=== PATIENT | female | born 1970 | race Hispanic/Latino ===

== ENCOUNTER 2017-06-07 02:38 | Emergency (ER) | payer MEDICARE ==
[2017-06-07 03:28] LABS: Basophils # (Auto) 0.1 K/mm3 (0.0-0.1); Basophils % (Auto) 1.2 % (0.0-1.8); Eosinophils # (Auto) 0.4 K/mm3 (0.0-0.4); Eosinophils % (Auto) 6.8 % (0.0-4.3); Hematocrit 28.2 % (30.3-42.9); Hemoglobin 8.4 gm/dl (10.1-14.3); Lymphocytes # (Auto) 2.2 K/mm3 (1.2-5.4); Lymphocytes % (Auto) 34.7 % (13.4-35.0); Mean Corpuscular HGB Conc 30 % (30-34); Mean Corpuscular Volume 71 fl (79-97); Monocytes # (Auto) 0.9 K/mm3 (0.0-0.8); Monocytes % (Auto) 13.5 % (0.0-7.3); Platelet Count 219 K/mm3 (140-440); Red Blood Count 3.97 M/mm3 (3.65-5.03)
[2017-06-07 03:34] LABS: Mean Corpuscular Hemoglobin 21 pg (28-32); Red Cell Distribution Width 22.5 % (13.2-15.2)
[2017-06-07 03:39] LABS: BUN/Creatinine Ratio 24; Blood Urea Nitrogen 17 mg/dL (7-17); Calcium 8.9 mg/dL (8.4-10.2); Hemolysis Index 3
--- NOTE | 2017-06-07 06:31 | Emergency Department Report ---
HPI - General Chief Complaint: Anxiety Time Seen by Provider: 06/07/17 06:21 - HPI HPI: Room 6 The patient is a 47-year-old female presented with a chief complaint of anxiety. The patient states she came to the emergency department because she had an anxiety attack. Patient states she ran out of her medications approximately 2 weeks ago. When asked if she followed up with her psychiatrist after running out of her medications the patient does not respond. The patient is sleeping on a stretcher and requires frequent verbal stimuli to awaken and complete the interview. When patient awakens she apologized that she just feels tired without any specific complaints Location: Mental status Duration: [See above] Quality: Anxiety Severity: Moderate Modifying factors: [see above] Context: [see above] Mode of transportation: Unknown ED Past Medical Hx - Past Medical History Previous Medical History?: Yes Hx Headaches / Migraines: Yes Hx Kidney Stones: Yes Hx Psychiatric Treatment: Yes Additional medical history: Bipolar, Depression, Crohn's. HERNIATED DISC/ CHRONIC BACK PAIN - Surgical History Past Surgical History?: Yes Hx Cholecystectomy: Yes Additional Surgical History: Xs 3,. tubal ligation - Family History Family history: no significant - Social History Smoking Status: Never Smoker Substance Use Type: None (denies illicit drug use) - Medications Home Medications: Home Medications Medication Instructions Recorded Confirmed Last Taken Type Quetiapine Fumarate [Seroquel XR] 800 mg PO HS 11/21/13 05/29/15 1 Day Ago History ~05/28/15 Trazodone HCl [Oleptro ER] 300 mg PO QHS 11/21/13 05/29/15 1 Day Ago History ~05/28/15 ALPRAZolam [Xanax TAB] 1 mg PO BID PRN 05/29/15 05/29/15 1 Day Ago History ~05/28/15 Ciprofloxacin HCl [Ciprofloxacin 500 mg PO Q12H #28 tab 05/29/15 Unknown Rx TAB] HYDROcodone/APAP 5-325 [Zalma 1 each PO Q6HR PRN #7 tablet 05/29/15 Unknown Rx 5/325] predniSONE [Deltasone] 20 mg PO QDAY #14 tab 05/29/15 Unknown Rx Acetaminophen/Codeine [Tylenol #3] 1 tab PO Q6H PRN #12 tab 06/27/15 Unknown Rx Ibuprofen [Motrin 800 MG tab] 1 tab PO Q8HR PRN #30 tablet 06/27/15 Unknown Rx Nitrofurantoin Sutton/M-Cryst 1 cap PO Q12HR #14 capsule 06/27/15 Unknown Rx [Macrobid CAP] predniSONE [Deltasone] 1 tab PO QDAY #5 tab 06/27/15 Unknown Rx Ferrous Sulfate [Feosol 325 MG tab] 325 mg PO BID #60 tablet 12/06/15 Unknown Rx Ondansetron [Zofran Odt] 4 mg PO Q8HR PRN #20 tab.rapdis 12/06/15 Unknown Rx Oxycodone HCl/Acetaminophen 1 each PO Q6HR PRN #20 tablet 12/06/15 Unknown Rx [Percocet 7.5/325 mg] Cyclobenzaprine [Flexeril] 10 mg PO TID PRN #15 tablet 12/12/15 Unknown Rx PARoxetine [Paxil] 60 mg PO HS #30 tablet 06/07/17 Unknown Rx hydrOXYzine PAMOATE [Vistaril] 50 mg PO Q6HR PRN #10 capsule 06/07/17 Unknown Rx ED Review of Systems ROS: Stated complaint: ANXIETY Other details as noted in HPI Psychiatric: anxiety Physical Exam - Physical Exam Vital Signs: Vital Signs 06/07/17 06/07/17 02:48 05:10 Temperature 98.2 F Pulse Rate 93 H Respiratory 18 16 Rate Blood Pressure 107/67 O2 Sat by Pulse 100 99 Oximetry Physical Exam: GENERAL: The patient is well-developed well-nourished female sleeping on stretcher not appearing to be in acute distress. Patient requires frequent verbal stimuli during interview to prevent her from falling back asleep HEENT: Normocephalic. Atraumatic. Extraocular motions are intact. Patient has moist mucous membranes. NECK: Supple. Trachea midline CHEST/LUNGS: Clear to auscultation. There is no respiratory distress noted. HEART/CARDIOVASCULAR: Regular. There is no tachycardia. There is no gallop rub or murmur. SKIN: There is no rash. There is no diaphoresis. NEURO: The patient is initially asleep but awakens to verbal stimuli. Initially the patient would frequently fall back asleep during the interview. The patient is cooperative. The patient has no focal neurologic deficits. The patient has normal speech MUSCULOSKELETAL: There is no evidence of acute injury. ED Course Vital Signs 06/07/17 06/07/17 02:48 05:10 Temperature 98.2 F Pulse Rate 93 H Respiratory 18 16 Rate Blood Pressure 107/67 O2 Sat by Pulse 100 99 Oximetry ED Medical Decision Making - Lab Data Result diagrams: 06/07/17 03:05 06/07/17 03:05 Laboratory Tests 06/07/17 06/07/17 03:05 03:05 WBC 6.4 RBC 3.97 Hgb 8.4 L Hct 28.2 L MCV 71 L MCH 21 L MCHC 30 RDW 22.5 H Plt Count 219 Lymph % (Auto) 34.7 Sutton % (Auto) 13.5 H Eos % (Auto) 6.8 H Baso % (Auto) 1.2 Lymph # 2.2 Sutton # 0.9 H Eos # 0.4 Baso # 0.1 Seg Neutrophils % 43.8 Seg Neutrophils # 2.8 Sodium 138 Potassium 3.6 Chloride 99.0 Carbon Dioxide 26 Anion Gap 17 BUN 17 Creatinine 0.7 Estimated GFR > 60 BUN/Creatinine Ratio 24 Glucose 114 H Calcium 8.9 - Differential Diagnosis anxiety, malingering Critical care attestation.: If time is entered above; I have spent that time in minutes in the direct care of this critically ill patient, excluding procedure time. ED Disposition Clinical Impression: History of anxiety Disposition: DC-01 TO HOME OR SELFCARE Is pt being admited?: No Does the pt Need Aspirin: No Condition: Stable Instructions: Anxiety (ED) Additional Instructions: Return to the emergency department immediately should you develop worsening symptoms, fever, inability to tolerate food or liquid or any other concerns. Prescriptions: hydrOXYzine PAMOATE [Vistaril] 50 mg PO Q6HR PRN #10 capsule PRN Reason: Anxiety PARoxetine [Paxil] 60 mg PO HS #30 tablet Referrals: PRIMARY CARE, [Primary Care Provider] - 3-[address] [facility] [[facility]] - 3-5 Days Time of Disposition: 06:31
[2017-06-07 06:35] VITALS: BP 101/59
== END 2017-06-07 06:35 | disposition home or self-care (01) ==
LOC: ED 02:38
DX: F41.9 Anxiety disorder, unspecified (principal); F31.9 Bipolar disorder, unspecified; K50.90 Crohn's disease, unspecified, without complications; M54.9 Dorsalgia, unspecified; G89.29 Other chronic pain; Z98.51 Tubal ligation status
CPT/HCPCS: 36415; 80048; 85025; 99283

== ENCOUNTER 2017-12-14 23:29 | Emergency (ER) | payer MEDICARE ==
[2017-12-14 23:55] VITALS: BP 107/67
[2017-12-15] MEDS ORDERED: NACL 0.9% 1000 ML 1,000 ML IV ONE (00:10)
[2017-12-15 00:31] LABS: Basophils # (Auto) 0.1 K/mm3 (0.0-0.1); Basophils % (Auto) 1.4 % (0.0-1.8); Eosinophils # (Auto) 0.1 K/mm3 (0.0-0.4); Eosinophils % (Auto) 2.9 % (0.0-4.3); Hematocrit 27.8 % (30.3-42.9); Hemoglobin 8.5 gm/dl (10.1-14.3); Lymphocytes # (Auto) 1.5 K/mm3 (1.2-5.4); Lymphocytes % (Auto) 29.9 % (13.4-35.0); Mean Corpuscular HGB Conc 31 % (30-34); Mean Corpuscular Volume 74 fl (79-97); Monocytes # (Auto) 0.6 K/mm3 (0.0-0.8); Monocytes % (Auto) 11.9 % (0.0-7.3); Platelet Count 200 K/mm3 (140-440); Red Blood Count 3.76 M/mm3 (3.65-5.03)
[2017-12-15 00:32] LABS: Mean Corpuscular Hemoglobin 23 pg (28-32); Red Cell Distribution Width 20.3 % (13.2-15.2)
[2017-12-15 00:48] LABS: Alanine Aminotransferase 9 units/L (7-56); Albumin 4.2 g/dL (3.9-5); BUN/Creatinine Ratio 9; Blood Urea Nitrogen 7 mg/dL (7-17); Calcium 8.8 mg/dL (8.4-10.2); Hemolysis Index 2; Lipase 32 units/L (13-60)
== END 2017-12-15 03:26 | disposition left against medical advice (07) ==
LOC: ED 23:29
DX: R11.10 Vomiting, unspecified (principal); Z53.21 Procedure and treatment not carried out due to patient leaving prior to being seen by health care provider
CPT/HCPCS: 36415; 80053; 82962; 83690; 84703; 85025; 93005; 93010

== ENCOUNTER 2017-12-21 23:14 | Emergency (ER) | payer MEDICARE ==
[2017-12-22] MEDS ORDERED: NACL 0.9% 1000 ML 1,000 ML IV ONE (00:32)
[2017-12-22 01:14] LABS: Basophils # (Auto) 0.1 K/mm3 (0.0-0.1); Basophils % (Auto) 1.9 % (0.0-1.8); Eosinophils # (Auto) 0.2 K/mm3 (0.0-0.4); Eosinophils % (Auto) 4.6 % (0.0-4.3); Hemoglobin 7.8 gm/dl (10.1-14.3); Lymphocytes # (Auto) 1.6 K/mm3 (1.2-5.4); Lymphocytes % (Auto) 38.8 % (13.4-35.0); Mean Corpuscular HGB Conc 30 % (30-34); Mean Corpuscular Volume 74 fl (79-97); Monocytes # (Auto) 0.5 K/mm3 (0.0-0.8); Monocytes % (Auto) 12.5 % (0.0-7.3); Platelet Count 258 K/mm3 (140-440); Red Blood Count 3.51 M/mm3 (3.65-5.03)
[2017-12-22 01:16] LABS: Mean Corpuscular Hemoglobin 22 pg (28-32); Red Cell Distribution Width 20.3 % (13.2-15.2)
[2017-12-22 01:30] LABS: Alanine Aminotransferase 80 units/L (7-56); Albumin 4.1 g/dL (3.9-5); BUN/Creatinine Ratio 10; Blood Urea Nitrogen 9 mg/dL (7-17); Calcium 9.1 mg/dL (8.4-10.2); Hemolysis Index 13; Lipase 25 units/L (13-60)
[2017-12-22 02:23] LABS: Bilirubin,Urine NEG (Negative); Blood,Urine LG (Negative); Color,Urine Straw (Yellow); Protein,Urine <15 mg/dL mg/dL (Negative); Urobilinogen,Urine < 2.0 mg/dL (<2.0)
[2017-12-22] MEDS ORDERED: TORADOL IM ONE (03:55)
[2017-12-22] MEDS ORDERED: ZOFRAN IM ONE (03:55)
--- NOTE | 2017-12-22 04:00 | Emergency Department Report ---
ED Abdominal Pain HPI - General Chief Complaint: Abdominal Pain Stated Complaint: SEVERE STOMACH PAIN Time Seen by Provider: 12/22/17 03:46 Source: patient Mode of arrival: Ambulatory Limitations: No Limitations - History of Present Illness Initial Comments: Patient is 47 years old female with history of chronic abdominal pain, bipolar disorder and substance abuse. Patient was recently discharged from the hospital for abdominal pain for which she was seen by gastroenterology. Patient also had a recent CT abdomen and pelvis with no acute finding. Patient gave remote history of Crohn's disease in [address] abdomen and pelvis did not show any evidence of that. Patient has chronic anemia for which a gynecology consult was asked for. Patient today presented with the same abdominal pain. She stated that she didn't have any bowel movement for the last week. She also stated that she's been having some nausea but no vomiting. Patient denied any fever, chest pain or shortness of breath. MD Complaint: abdominal pain - Related Data Home Medications Medication Instructions Recorded Confirmed Last Taken Quetiapine Fumarate [SEROquel XR] 600 mg PO HS 11/21/13 12/16/17 1 Day Ago ~05/28/15 Ziprasidone HCl [Geodon] 80 mg PO BID 12/16/17 12/16/17 Unknown lamoTRIgine [LaMICtal] 100 mg PO BID 12/16/17 12/16/17 Unknown Previous Rx's Medication Instructions Recorded Last Taken Type PARoxetine [Paxil] 60 mg PO HS #30 tablet 06/07/17 Unknown Rx Pantoprazole [Protonix TAB] 20 mg PO QDAY #30 tablet.dr 12/17/17 Unknown Rx Polyethylene Glycol 3350 [Miralax 17 gm PO BID #60 powd.pack 12/17/17 Unknown Rx 3350] traMADol [Ultram 50 MG tab] 50 mg PO Q6H PRN #14 tablet 12/17/17 Unknown Rx Lactulose 10 gm PO DAILY PRN #150 ml 12/22/17 Unknown Rx Ondansetron [Zofran Odt] 4 mg PO Q8HR PRN #14 tab.rapdis 12/22/17 Unknown Rx Sodium Phosphate,[place]-Dibasic 118 ml RC ONCE #1 enema 12/22/17 Unknown Rx [Fleet Enema] Allergies Allergy/AdvReac Type Severity Reaction Status Date / Time Penicillins Allergy Unknown Verified 06/27/15 12:35 ED Review of Systems ROS: Stated complaint: SEVERE STOMACH PAIN Other details as noted in HPI Comment: All other systems reviewed and negative Constitutional: denies: chills, fever Cardiovascular: denies: chest pain, palpitations Gastrointestinal: abdominal pain, nausea. denies: vomiting, diarrhea, constipation, hematemesis, melena, hematochezia Neurological: denies: headache, weakness, numbness, paresthesias, confusion ED Past Medical Hx - Past Medical History Hx Congestive Heart Failure: No Hx Diabetes: No Hx Headaches / Migraines: Yes Hx Kidney Stones: Yes Hx Psychiatric Treatment: Yes Hx Asthma: No Hx COPD: No Additional medical history: Bipolar, Depression, Crohn's. HERNIATED DISC/ CHRONIC BACK PAIN - Surgical History Hx Cholecystectomy: Yes Additional Surgical History: Xs 3,. tubal ligation - Social History Smoking Status: Current Every Day Smoker Substance Use Type: None - Medications Home Medications: Home Medications Medication Instructions Recorded Confirmed Last Taken Type Quetiapine Fumarate [SEROquel XR] 600 mg PO HS 11/21/13 12/16/17 1 Day Ago History ~05/28/15 PARoxetine [Paxil] 60 mg PO HS #30 tablet 06/07/17 12/16/17 Unknown Rx Ziprasidone HCl [Geodon] 80 mg PO BID 12/16/17 12/16/17 Unknown History lamoTRIgine [LaMICtal] 100 mg PO BID 12/16/17 12/16/17 Unknown History Pantoprazole [Protonix TAB] 20 mg PO QDAY #30 tablet.dr 12/17/17 Unknown Rx Polyethylene Glycol 3350 [Miralax 17 gm PO BID #60 powd.pack 12/17/17 Unknown Rx 3350] traMADol [Ultram 50 MG tab] 50 mg PO Q6H PRN #14 tablet 12/17/17 Unknown Rx Lactulose 10 gm PO DAILY PRN #150 ml 12/22/17 Unknown Rx Ondansetron [Zofran Odt] 4 mg PO Q8HR PRN #14 tab.rapdis 12/22/17 Unknown Rx Sodium Phosphate,[place]-Dibasic 118 ml RC ONCE #1 enema 12/22/17 Unknown Rx [Fleet Enema] ED Physical Exam - General Limitations: No Limitations General appearance: alert, in no apparent distress - Head Head exam: Present: atraumatic, normocephalic, normal inspection - Eye Eye exam: Present: normal appearance, PERRL - ENT ENT exam: Present: normal exam, normal orophraynx, mucous membranes moist - Neck Neck exam: Present: normal inspection, full ROM. Absent: tenderness, meningismus, lymphadenopathy, thyromegaly - Respiratory Respiratory exam: Present: normal lung sounds bilaterally - Cardiovascular Cardiovascular Exam: Present: regular rate, normal rhythm, normal heart sounds - GI/Abdominal GI/Abdominal exam: Present: soft, normal bowel sounds. Absent: distended, tenderness, guarding, rebound, rigid, organomegaly, mass, bruit, pulsatile mass , hernia - Extremities Exam Extremities exam: Present: normal inspection, full ROM, normal capillary refill - Back Exam Back exam: Present: normal inspection, full ROM. Absent: tenderness, CVA tenderness (R), CVA tenderness (L), muscle spasm, paraspinal tenderness, vertebral tenderness, rash noted - Neurological Exam Neurological exam: Present: alert, oriented X3, CN II-XII intact, normal gait, reflexes normal - Skin Skin exam: Present: warm, intact, normal color ED Course Vital Signs 12/22/17 12/22/17 12/22/17 00:26 03:28 04:00 Temperature 97.6 F 97.7 F Pulse Rate 95 H 87 Respiratory 16 18 Rate Blood Pressure 106/71 103/68 Blood Pressure 113/72 [Left] O2 Sat by Pulse 100 99 Oximetry ED Medical Decision Making - Lab Data Result diagrams: 12/22/17 00:38 12/22/17 00:38 Critical care attestation.: If time is entered above; I have spent that time in minutes in the direct care of this critically ill patient, excluding procedure time. ED Disposition Clinical Impression: Intractable abdominal pain Abdominal pain Qualifiers: Abdominal location: generalized Qualified Code(s): R10.84 - Generalized abdominal pain Disposition: TO HOME OR SELFCARE Is pt being admited?: No Condition: Stable Instructions: Constipation (ED), High Fiber Diet (ED), Abdominal Pain (ED) Prescriptions: Lactulose 10 gm PO DAILY PRN #150 ml PRN Reason: Constipation Ondansetron [Zofran Odt] 4 mg PO Q8HR PRN #14 tab.rapdis PRN Reason: Nausea And Vomiting Sodium Phosphate,Wilbarger-Dibasic [Fleet Enema] 118 ml RC ONCE #1 enema Referrals: PRIMARY CARE, [Primary Care Provider] - 3-5 Days Forms: Work/School Release Form(ED)
[2017-12-22 04:34] VITALS: BP 103/68
== END 2017-12-22 04:25 | disposition home or self-care (01) ==
LOC: ED 23:14
DX: R10.84 Generalized abdominal pain (principal); F31.9 Bipolar disorder, unspecified; F17.200 Nicotine dependence, unspecified, uncomplicated; K50.90 Crohn's disease, unspecified, without complications; M54.9 Dorsalgia, unspecified; G89.29 Other chronic pain; Z90.49 Acquired absence of other specified parts of digestive tract; Z98.51 Tubal ligation status; Z87.442 Personal history of urinary calculi
CPT/HCPCS: 36415; 80053; 81001; 83690; 84703; 85025; 96372; 99283; J1885; J2405

== ENCOUNTER 2019-07-22 11:04 | Inpatient (IN) | payer MEDICARE ==
[2019-07-22 16:47] LABS: Basophils # (Auto) 0.1 K/mm3 (0.0-0.1); Basophils % (Auto) 1.2 % (0.0-1.8); Eosinophils # (Auto) 0.2 K/mm3 (0.0-0.4); Eosinophils % (Auto) 4.8 % (0.0-4.3); Hematocrit 35.8 % (30.3-42.9); Hemoglobin 11.5 gm/dl (10.1-14.3); Lymphocytes # (Auto) 1.6 K/mm3 (1.2-5.4); Lymphocytes % (Auto) 34.3 % (13.4-35.0); Mean Corpuscular HGB Conc 32 % (30-34); Mean Corpuscular Volume 88 fl (79-97); Monocytes # (Auto) 0.4 K/mm3 (0.0-0.8); Monocytes % (Auto) 9.5 % (0.0-7.3); Platelet Count 179 K/mm3 (140-440); Red Blood Count 4.05 M/mm3 (3.65-5.03); Red Cell Distribution Width 17.8 % (13.2-15.2)
[2019-07-22 17:07] LABS: Albumin 3.8 g/dL (3.9-5); Calcium 9.3 mg/dL (8.4-10.2); Chol/HDL Ratio 3.71 %
[2019-07-22] MEDS: QUEtiapine 100 MG TAB PO SCH (21:26)
[2019-07-22] MEDS: POLYETHYLENE GLYCOL 3350 17 GM POWDER PO SCH (21:26)
[2019-07-22] MEDS: PARoxetine 20 MG TAB PO SCH (21:26)
[2019-07-22] MEDS ORDERED: QUETIAPINE FUMARATE 600 MG PO SCH (22:00)
[2019-07-23] MEDS: QUEtiapine 100 MG TAB PO SCH ×2 (11:41→22:01)
[2019-07-23] MEDS: PANTOPRAZOLE 20 MG TAB PO SCH (11:42)
[2019-07-23] MEDS: POLYETHYLENE GLYCOL 3350 17 GM POWDER PO SCH ×2 (11:44→22:00)
[2019-07-23] MEDS: NICOTINE 14 MG/24 HR PATCH TD SCH (11:44)
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
--- NOTE | 2019-07-23 17:21 | Consultation ---
History of Present Illness - Reason for Consult Consult date: 07/23/19 Medical consult Requesting physician: MAT PLASCENCIA?: No - History of Present Illness 49-year-old female patient with significant past medical history of migraine headaches nephrolithiasis bipolar depression Crohn's disease chronic back pain herniated disc presented to the ER with the complaints of auditory and visual hallucinations patient also hears voices and has psychotic behavior. Patient was evaluated and admitted by psychiatrist to [facility] for [facility] er evaluation management Hospitalist services were consulted for medical consult. At the time of my evaluation patient is comfortable denies any new episodes of hallucinations Visual or auditory, wants to go home. Patient denies any headache or dizziness Denies any weakness or numbness Nausea vomiting or abdominal pain Past History Past Medical History: migraines, other (Headache, Crohn's disease depression chronic low back pain) Past Surgical History: ( x3) Social history: smoking. denies: prescription drug abuse, IV drug use Family history: hypertension Medications and Allergies Allergies Allergy/AdvReac Type Severity Reaction Status Date / Time Penicillins Allergy Unknown Verified 06/27/15 12:35 Home Medications Medication Instructions Recorded Confirmed Last Taken Type Quetiapine Fumarate [SEROquel XR] 600 mg PO HS 11/21/13 07/23/19 1 Day Ago History ~05/28/15 PARoxetine [Paxil] 60 mg PO HS #30 tablet 06/07/17 07/23/19 Unknown Rx Ziprasidone HCl [Geodon] 80 mg PO BID 12/16/17 07/23/19 Unknown History lamoTRIgine [LaMICtal] 100 mg PO BID 12/16/17 07/23/19 Unknown History Pantoprazole [Protonix TAB] 20 mg PO QDAY #30 tablet. 12/17/17 07/23/19 Unknown Rx polyethylene glycoL 3350 [Miralax 17 gm PO BID #60 powd.pack 12/17/17 07/23/19 Unknown Rx 3350] traMADoL [Ultram 50 MG tab] 50 mg PO Q6H PRN #14 tablet 12/17/17 07/23/19 Unkno wn Rx OLANZapine [Zyprexa] 20 mg PO QHS 07/23/19 07/23/19 Unknown History busPIRone [Buspar] 10 mg PO BID 07/23/19 07/23/19 Unknown History Active Meds: Active Medications Nicotine (Habitrol) 14 mg TD QDAY [facility] Last Admin: 07/23/19 11:44 Dose: Not Given Documented by: Pantoprazole Sodium (Protonix) 20 mg PO QDAY [facility] Last Admin: 07/23/19 11:42 Dose: 20 mg Documented by: Paroxetine HCl (Paxil) 60 mg PO HS [facility] Last Admin: 07/22/19 21:26 Dose: 60 mg Documented by: Polyethylene Glycol (Miralax 3350) 17 gm PO BID [facility] Last Admin: 07/23/19 11:44 Dose: 17 gm Documented by: Quetiapine Fumarate (Seroquel) 300 mg PO BID [facility] Last Admin: 07/23/19 11:41 Dose: 300 mg Documented by: Review of Systems Constitutional: no weight loss, no weight gain, no anorexia, no fatigue Ears, nose, mouth and throat: no nasal congestion, no nasal discharge Cardiovascular: no chest pain, no orthopnea, no palpitations, no syncope Respiratory: no cough, no shortness of breath Gastrointestinal: no abdominal pain, no nausea, no vomiting Genitourinary Female: no pelvic pain, no dysuria Musculoskeletal: myalgias, no arthritis Integumentary: no rash, no lesions Neurological: no weakness, no parathesias Psychiatric: anxiety, suicidal ideation, depression Endocrine: no cold intolerance, no heat intolerance Hematologic/Lymphatic: no easy bruising, no easy bleeding Allergic/Immunologic: no urticaria, no allergic rhinitis Exam - Constitutional Vitals: Temp Pulse Resp BP Pulse Ox 98.2 F 92 H 18 108/70 98 07/23/19 09:20 07/23/19 09:20 07/22/19 22:00 07/23/19 09:20 07/23/19 09:20 General appearance: Present: no acute distress, well-nourished, obese - EENT Eyes: Present: PERRL, EOM intact - Respiratory Respiratory effort: normal Respiratory: bilateral: diminished, negative: rales, rhonchi, wheezing - Cardiovascular Rhythm: irregularly irregular - Extremities Extremities: no ischemia, pulses intact - Abdominal General gastrointestinal: Present: soft, non-tender, non-distended, normal bowel sounds - Integumentary Integumentary: Present: clear, warm - Musculoskeletal Musculoskeletal: strength equal bilaterally, generalized weakness - Psychiatric Psychiatric: appropriate mood/affect, depressed - Neurologic Neurologic: moves all extremities Results - Labs CBC & Chem 7: 07/22/19 16:28 07/22/19 16:28 Assessment and Plan --Schizoaffective disorder; With visual and auditory hallucination Management per psych --Ongoing tobacco use; Smoking cessation counseling, nicotine patch as needed --History of cocaine use; strongly advised to quit recreational drug use --History of marijuana use; counseling advised to quit recreational drug use --DVT prophylaxis; SCDs while resting --Full CODE STATUS Monitor closely and adjust management as needed Thank you for this consultation we will follow the patient along with you as needed
[2019-07-23] MEDS: PARoxetine 20 MG TAB PO SCH (22:01)
--- NOTE | 2019-07-24 09:56 | Progress Note ---
Subjective Date of service: 07/24/19 Principal diagnosis: Substance induced psychotic disorder, schizoaffective bipoar type Subjective Comment: Per Care Nurse: Patient stayed in her room all day, only get up for meals, she is complaint with routine meds and has no complaints of pain. Pt refused nicotine patch this AM. Denies any thoughts of SI. pt encourage to attend group but refused, stated 'i just want to lay down, vital sign within normal limits and no coughing present. Will continue to monitor for safety. Patient interviewed by me this A.M. Patient was found in room, in bed and agreed to be seen without complaints. During this assessment, patient describes mood as "OK", reports not sleeping well, has been throwing up a lot all night (patient has history of intractable vomiting), she reports eating good, says shes hungry this A.M, and she does not report any nightmares. She still endorses auditory hallucinations, can hear people plotting against her but denies visual hallucinations. She reports being here has been the only good thing in her life. Reason for continuing inpatient treatment: Persistent auditory hallucination and paranoia MENTAL STATUS General Appearance and Behavior: age appropriate, good eye contact, cooperative with questioning and polite Cooperation: Cooperative Psychomotor Behavior: within normal limits Mood: depressed Affect and affective range: Congruent with stated mood Thought Process: Fluent/Logical and Goal-directed Thought Content: AH and Paranoia Speech: Normal volume and Regular rate and rhythm Intellectual Functioning Average Suicidal Ideation: Denies SI Homicidal Ideation: Denies HI Impulse Control: intact Insight and Judgment: normal insight and judgment Memory: Normal Attention: Normal Orientation: alert and oriented Diagnoses: - Psychiatric problem (1) Cocaine use disorder, severe, dependence Current Visit: Yes Status: Acute (2) Cannabis use disorder, severe, dependence Current Visit: Yes Status: Acute (3) Substance-induced psychotic disorder Current Visit: Yes Status: Acute (4) Schizoaffective disorder, bipolar type Current Visit: Yes Status: Acute Treatment Plan Patient will be admitted for inpatient psychiatric evaluation, medication adjustment and close monitoring The patient's behavior, mood, sleep and appetite will be closely monitored. Patient will be enrolled in individual and group therapeutic sessions and encouraged to attend. Patient will be provided with a safe and structured environment. Patient's physical health needs will be addressed by the Hospitalist. Hospitalist Consulted Labs including CBC, CMP, Lipid profile and Hemoglobin A1C ordered Social Assessment will be completed and the Turkey Farmer will work with patient and family to ensure a suitable and safe disposition Medication adjustment will be made as clinically indicated Usual Wellness Taoist/Preservation: - Start Trazodone 50 mg po QHS & 50 mg po QHS PRN between 10 PM & 2 AM for insomnia - Start Melatonin 5 mg po QHS to promote circadian rhythm - Start Mckenney-3 for brain health, reduce impulsivity, and as adjunctive treatment for mood disorder, continue upon discharge given overall benefits. - Start B1 prophylaxis with 200 mg po for 5 days The patient agreed on the treatment plan, understood the risk, benefit, alternative treatment, potential consequence of no treatment, and gave informed consent. Physician Certification Statement: This is an acknowledgement statement that ALEXANDRE PERES is a 49 year old F who requires inpatient psychiatric admission for treatment which could reasonably be expected to improve the patient's condition for auditory hallucinations and paranoia Estimated period of time patient will need to remain in the hospital: 6 days Plan for post-hospital care: Outpatient care Assessment and Plan - Patient Problems (1) Cannabis use disorder, severe, dependence Current Visit: Yes Status: Acute (2) Cocaine use disorder, severe, dependence Current Visit: Yes Status: Acute (3) Schizoaffective disorder, bipolar type Current Visit: Yes Status: Acute (4) Substance-induced psychotic disorder Current Visit: Yes Status: Acute (5) Acute psychosis Current Visit: No Status: Acute Medications and Allergies Allergies Allergy/AdvReac Type Severity Reaction Status Date / Time Penicillins Allergy Unknown Verified 06/27/15 12:35 Home Medications Medication Instructions Recorded Confirmed Last Taken Type Quetiapine Fumarate [SEROquel XR] 600 mg PO HS 11/21/13 07/23/19 1 Day Ago History ~05/28/15 PARoxetine [Paxil] 60 mg PO HS #30 tablet 06/07/17 07/23/19 Unknown Rx Ziprasidone HCl [Geodon] 80 mg PO BID 12/16/17 07/23/19 Unknown History lamoTRIgine [LaMICtal] 100 mg PO BID 12/16/17 07/23/19 Unknown History Pantoprazole [Protonix TAB] 20 mg PO QDAY #30 tablet. 12/17/17 07/23/19 Unknown Rx polyethylene glycoL 3350 [Miralax 17 gm PO BID #60 powd.pack 12/17/17 07/23/19 Unknown Rx 3350] traMADoL [Ultram 50 MG tab] 50 mg PO Q6H PRN #14 tablet 12/17/17 07/23/19 Unknown Rx OLANZapine [Zyprexa] 20 mg PO QHS 07/23/19 07/23/19 Unknown History busPIRone [Buspar] 10 mg PO BID 07/23/19 07/23/19 Unknown History Active Meds: Active Medications Buspirone HCl (Buspar) 10 mg PO BID [facility] Lamotrigine (Lamictal) 25 mg PO BID [facility] Nicotine (Habitrol) 14 mg TD QDAY [facility] Last Admin: 07/23/19 11:44 Dose: Not Given Documented by: Pantoprazole Sodium (Protonix) 20 mg PO QDAY [facility] Last Admin: 07/23/19 11:42 Dose: 20 mg Documented by: Paroxetine HCl (Paxil) 60 mg PO [facility] Last Admin: 07/23/19 22:01 Dose: 60 mg Documented by: Polyethylene Glycol (Miralax 3350) 17 gm PO BID [facility] Last Admin: 07/23/19 22:00 Dose: 17 gm Documented by: Tramadol HCl (Ultram) 50 mg PO Q6H PRN PRN Reason: Pain, Moderate (4-6) Ziprasidone (Geodon) 80 mg PO BID [facility] Results - Results Labs/Vitals: Laboratory Last Values WBC 4.6 K/mm3 (4.5-11.0) 07/22/19 16:28 RBC 4.05 M/mm3 (3.65-5.03) 07/22/19 16:28 Hgb 11.5 gm/dl (10.1-14.3) 07/22/19 16:28 Hct 35.8 % (30.3-42.9) 07/22/19 16:28 MCV 88 fl (79-97) 07/22/19 16:28 MCH 28 pg (28-32) 07/22/19 16:28 MCHC 32 % (30-34) 07/22/19 16:28 RDW 17.8 % (13.2-15.2) H 07/22/19 16:28 Plt Count 179 K/mm3 (140-440) 07/22/19 16:28 Lymph % (Auto) 34.3 % (13.4-35.0) 07/22/19 16:28 [place] % (Auto) 9.5 % (0.0-7.3) H 07/22/19 16:28 Eos % (Auto) 4.8 % (0.0-4.3) H 07/22/19 16:28 Baso % (Auto) 1.2 % (0.0-1.8) 07/22/19 16:28 Lymph # 1.6 K/mm3 (1.2-5.4) 07/22/19 16:28 [place] # 0.4 K/mm3 (0.0-0.8) 07/22/19 16:28 Eos # 0.2 K/mm3 (0.0-0.4) 07/22/19 16:28 Baso # 0.1 K/mm3 (0.0-0.1) 07/22/19 16:28 Seg Neutrophils % 50.2 % (40.0-70.0) 07/22/19 16:28 Seg Neutrophils # 2.3 K/mm3 (1.8-7.7) 07/22/19 16:28 Sodium 142 mmol/L (137-145) 07/22/19 16:28 Potassium 3.9 mmol/L (3.6-5.0) 07/22/19 16:28 Chloride 104.0 mmol/L (98-107) 07/22/19 16:28 Carbon Dioxide 26 mmol/L (22-30) 07/22/19 16:28 Anion Gap 16 mmol/L 07/22/19 16:28 BUN 14 mg/dL (7-17) 07/22/19 16:28 Creatinine 1.1 mg/dL (0.7-1.2) 07/22/19 16:28 Estimated GFR 53 ml/min 07/22/19 16:28 BUN/Creatinine Ratio 13 % 07/22/19 16:28 Glucose 138 mg/dL (65-100) H 07/22/19 16:28 Hemoglobin A1c 5.1 % (4-6) 07/22/19 16:28 Calcium 9.3 mg/dL (8.4-10.2) 07/22/19 16:28 Total Bilirubin 0.20 mg/dL (0.1-1.2) 07/22/19 16:28 AST 18 units/L (5-40) 07/22/19 16:28 ALT 9 units/L (7-56) 07/22/19 16:28 Alkaline Phosphatase 94 units/L (35-129) 07/22/19 16:28 Total Protein 6.5 g/dL (6.3-8.2) 07/22/19 16:28 Albumin 3.8 g/dL (3.9-5) L 07/22/19 16:28 Albumin/Globulin Ratio 1.4 % 07/22/19 16:28 Triglycerides 65 mg/dL (2-149) 07/22/19 16:28 Cholesterol 182 mg/dL (50-199) 07/22/19 16:28 LDL Cholesterol Direct 133 mg/dL (50-130) H 07/22/19 16:28 HDL Cholesterol 49 mg/dL (40-59) 07/22/19 16:28 Cholesterol/HDL Ratio 3.71 % 07/22/19 16:28 TSH 0.410 mlU/mL (0.270-4.200) 07/22/19 16:28 Last Vital Signs Temp 98.3 F 07/23/19 19:44 Pulse 82 07/23/19 19:44 Resp 17 07/23/19 19:44 BP 139/91 07/23/19 19:44 Pulse Ox 95 07/23/19 19:44
[2019-07-24] MEDS ORDERED: ZIPRASIDONE HCL 80 MG PO SCH (10:00)
[2019-07-24] MEDS ORDERED: lamoTRIgine 100 MG TAB PO SCH ×2 (10:00)
[2019-07-24] MEDS: ZIPRASIDONE 40 MG CAP PO SCH ×2 (12:20→22:05)
[2019-07-24] MEDS: lamoTRIgine 25 MG TAB PO SCH ×2 (12:21→22:06)
[2019-07-24] MEDS: PANTOPRAZOLE 20 MG TAB PO SCH (12:21)
[2019-07-24] MEDS: busPIRone 10 MG TAB PO SCH ×2 (12:28→22:03)
[2019-07-24] MEDS: NICOTINE 14 MG/24 HR PATCH TD SCH ×2 (12:34→16:05)
[2019-07-24] MEDS: POLYETHYLENE GLYCOL 3350 17 GM POWDER PO SCH (12:35)
[2019-07-24] MEDS: PARoxetine 20 MG TAB PO SCH (22:03)
[2019-07-25] MEDS: ZIPRASIDONE 40 MG CAP PO SCH ×2 (10:05→21:04)
[2019-07-25] MEDS: lamoTRIgine 25 MG TAB PO SCH ×2 (10:06→21:04)
[2019-07-25] MEDS: PANTOPRAZOLE 20 MG TAB PO SCH (10:06)
[2019-07-25] MEDS: NICOTINE 14 MG/24 HR PATCH TD SCH (10:06)
[2019-07-25] MEDS: POLYETHYLENE GLYCOL 3350 17 GM POWDER PO SCH ×2 (10:08→21:03)
--- NOTE | 2019-07-25 10:32 | Progress Note ---
Subjective Date of service: 07/25/19 Principal diagnosis: Substance induced psychotic disorder, schizoaffective bipoar type Subjective Comment: Per Care Nurse: Patient was calm and cooperative throughout the evening. She interacts well with staff and peers. The patient denies si/hi/ah/vh. She was medication compliant. Patient rested quietly throughout the night. Patient presents as sleeping 8 plus hours. Will continue to monitor patient for safety. Patient interviewed by me this A.M. Patient was found in room, in bed and resting comfortably without mental distress noted. Patent reports sleeping well, no Nausea vomit overnight, has been eating well and mood is good, and denies having night lemons of concerns of someone hurting her. She denies auditory hallucinations, is no longer hearing people plotting against her and also denies visual hallucinations. She denies suicidal thoughts and homicidal thoughts. Patient denies any withdrawal symptoms or medication side effects, patient feel safe to go home tomorrow once all medication adjustment and monitory for side effects are cleared. Reason for continuing inpatient treatment: Medication management and side effect monitory MENTAL STATUS General Appearance and Behavior: age appropriate, good eye contact, cooperative with questioning and polite Cooperation: Cooperative Psychomotor Behavior: within normal limits Mood: depressed Affect and affective range: Congruent with stated mood Thought Process: Fluent/Logical and Goal-directed Thought Content: No Hallucinations Speech: Normal volume and Regular rate and rhythm Intellectual Functioning Average Suicidal Ideation: Denies SI Homicidal Ideation: Denies HI Impulse Control: intact Insight and Judgment: normal insight and judgment Memory: Normal Attention: Normal Orientation: alert and oriented Diagnoses: - Psychiatric problem (1) Cocaine use disorder, severe, dependence Current Visit: Yes Status: Acute (2) Cannabis use disorder, severe, dependence Current Visit: Yes Status: Acute (3) Substance-induced psychotic disorder Current Visit: Yes Status: Acute (4) Schizoaffective disorder, bipolar type Current Visit: Yes Status: Acute Treatment Plan Patient will be admitted for inpatient psychiatric evaluation, medication adjustment and close monitoring The patient's behavior, mood, sleep and appetite will be closely monitored. Patient will be enrolled in individual and group therapeutic sessions and encouraged to attend. Patient will be provided with a safe and structured environment. Patient's physical health needs will be addressed by the Hospitalist. Hospitalist Consulted Labs including CBC, CMP, Lipid profile and Hemoglobin A1C ordered Social Assessment will be completed and the Abnormal Psychology Teacher will work with patient and family to ensure a suitable and safe disposition Medication adjustment will be made as clinically indicated The patient agreed on the treatment plan, understood the risk, benefit, alternative treatment, potential consequence of no treatment, and gave informed consent. Physician Certification Statement: This is an acknowledgement statement that ALEXANDRE PERES is a 49 year old F who requires inpatient psychiatric admission for treatment which could reasonably be expected to improve the patient's condition for auditory jane lucinations and paranoia Estimated period of time patient will need to remain in the hospital: 1 days Plan for post-hospital care: Outpatient care Assessment and Plan - Patient Problems (1) Cannabis use disorder, severe, dependence Current Visit: Yes Status: Acute (2) Cocaine use disorder, severe, dependence Current Visit: Yes Status: Acute (3) Schizoaffective disorder, bipolar type Current Visit: Yes Status: Acute (4) Substance-induced psychotic disorder Current Visit: Yes Status: Acute (5) Acute psychosis Current Visit: No Status: Acute Medications and Allergies Allergies Allergy/AdvReac Type Severity Reaction Status Date / Time Penicillins Allergy Unknown Verified 06/27/15 12:35 Home Medications Medication Instructions Recorded Confirmed Last Taken Type Quetiapine Fumarate [SEROquel XR] 600 mg PO HS 11/21/13 07/23/19 1 Day Ago History ~05/28/15 PARoxetine [Paxil] 60 mg PO HS #30 tablet 06/07/17 07/23/19 Unknown Rx Ziprasidone HCl [Geodon] 80 mg PO BID 12/16/17 07/23/19 Unknown History lamoTRIgine [LaMICtal] 100 mg PO BID 12/16/17 07/23/19 Unknown History Pantoprazole [Protonix TAB] 20 mg PO QDAY #30 tablet. 12/17/17 07/23/19 Unknown Rx polyethylene glycoL 3350 [Miralax 17 gm PO BID #60 powd.pack 12/17/17 07/23/19 Unknown Rx 3350] traMADoL [Ultram 50 MG tab] 50 mg PO Q6H PRN #14 tablet 12/17/17 07/23/19 Unknown Rx OLANZapine [Zyprexa] 20 mg PO QHS 07/23/19 07/23/19 Unknown History busPIRone [Buspar] 10 mg PO BID 07/23/19 07/23/19 Unknown History Active Meds: Active Medications Buspirone HCl (Buspar) 10 mg PO BID [facility] Last Admin: 07/24/19 22:03 Dose: 10 mg Documented by: Lamotrigine (Lamictal) 25 mg PO BID [facility] Last Admin: 07/25/19 10:06 Dose: 25 mg Documented by: Nicotine (Habitrol) 14 mg TD QDAY [facility] Last Admin: 07/25/19 10:06 Dose: 14 mg Documented by: Pantoprazole Sodium (Protonix) 20 mg PO QDAY [facility] Last Admin: 07/25/19 10:06 Dose: 20 mg Documented by: Paroxetine HCl (Paxil) 60 mg PO HS [facility] Last Admin: 07/24/19 22:03 Dose: 60 mg Documented by: Polyethylene Glycol (Miralax 3350) 17 gm PO BID [facility] Last Admin: 07/25/19 10:08 Dose: 17 gm Documented by: Tramadol HCl (Ultram) 50 mg PO Q6H PRN PRN Reason: Pain, Moderate (4-6) Ziprasidone (Geodon) 80 mg PO BID [facility] Last Admin: 07/25/19 10:05 Dose: 80 mg Documented by: Results - Results Labs/Vitals: Laboratory Last Values WBC 4.6 K/mm3 (4.5-11.0) 07/22/19 16:28 RBC 4.05 M/mm3 (3.65-5.03) 07/22/19 16:28 Hgb 11.5 gm/dl (10.1-14.3) 07/22/19 16:28 Hct 35.8 % (30.3-42.9) 07/22/19 16:28 MCV 88 fl (79-97) 07/22/19 16:28 MCH 28 pg (28-32) 07/22/19 16:28 MCHC 32 % (30-34) 07/22/19 16:28 RDW 17.8 % (13.2-15.2) H 07/22/19 16:28 Plt Count 179 K/mm3 (140-440) 07/22/19 16:28 Lymph % (Auto) 34.3 % (13.4-35.0) 07/22/19 16:28 [place] % (Auto) 9.5 % (0.0-7.3) H 07/22/19 16:28 Eos % (Auto) 4.8 % (0.0-4.3) H 07/22/19 16:28 Baso % (Auto) 1.2 % (0.0-1.8) 07/22/19 16:28 Lymph # 1.6 K/mm3 (1.2-5.4) 07/22/19 16:28 [place] # 0.4 K/mm3 (0.0-0.8) 07/22/19 16:28 Eos # 0.2 K/mm3 (0.0-0.4) 07/22/19 16:28 Baso # 0.1 K/mm3 (0.0-0.1) 07/22/19 16:28 Seg Neutrophils % 50.2 % (40.0-70.0) 07/22/19 16:28 Seg Neutrophils # 2.3 K/mm3 (1.8-7.7) 07/22/19 16:28 Sodium 142 mmol/L (137-145) 07/22/19 16:28 Potassium 3.9 mmol/L (3.6-5.0) 07/22/19 16:28 Chloride 104.0 mmol/L (98-107) 07/22/19 16:28 Carbon Dioxide 26 mmol/L (22-30) 07/22/19 16:28 Anion Gap 16 mmol/L 07/22/19 16:28 BUN 14 mg/dL (7-17) 07/22/19 16:28 Creatinine 1.1 mg/dL (0.7-1.2) 07/22/19 16:28 Estimated GFR 53 ml/min 07/22/19 16:28 BUN/Creatinine Ratio 13 % 07/22/19 16:28 Glucose 138 mg/dL (65-100) H 07/22/19 16:28 Hemoglobin A1c 5.1 % (4-6) 07/22/19 16:28 Calcium 9.3 mg/dL (8.4-10.2) 07/22/19 16:28 Total Bilirubin 0.20 mg/dL (0.1-1.2) 07/22/19 16:28 AST 18 units/L (5-40) 07/22/19 16:28 ALT 9 units/L (7-56) 07/22/19 16:28 Alkaline Phosphatase 94 units/L (35-129) 07/22/19 16:28 Total Protein 6.5 g/dL (6.3-8.2) 07/22/19 16:28 Albumin 3.8 g/dL (3.9-5) L 07/22/19 16:28 Albumin/Globulin Ratio 1.4 % 07/22/19 16:28 Triglycerides 65 mg/dL (2-149) 07/22/19 16:28 Cholesterol 182 mg/dL (50-199) 07/22/19 16:28 LDL Cholesterol Direct 133 mg/dL (50-130) H 07/22/19 16:28 HDL Cholesterol 49 mg/dL (40-59) 07/22/19 16:28 Cholesterol/HDL Ratio 3.71 % 07/22/19 16:28 TSH 0.410 mlU/mL (0.270-4.200) 07/22/19 16:28 Last Vital Signs Temp 97.5 F L 07/24/19 19:46 Pulse 79 07/24/19 19:46 Resp 16 07/24/19 19:46 BP 103/64 07/24/19 19:46 Pulse Ox 98 07/24/19 19:46
[2019-07-25] MEDS: busPIRone 10 MG TAB PO SCH ×2 (10:43→21:04)
[2019-07-25] MEDS: traMADol 50 MG TAB PO PRN ×2 (15:29→21:39)
[2019-07-25] MEDS: PARoxetine 20 MG TAB PO SCH (21:05)
--- NOTE | 2019-07-26 08:00 | Progress Note ---
Subjective Date of service: 07/26/19 Principal diagnosis: Substance induced psychotic disorder, schizoaffective bipoar type Subjective Comment: Per Care Nurse: Patient has been pleasant and cooperative. She interacted well with peers. Patient c/o abdominal cramping and was medicated with tramadol. She reported good results. No further complaints HPI Patient evaluated this A.M. Patient indicates her mood has gotten better, and she indicates sleeping much better too now and denies any changes in appetite, reports eating almost everything. Patient also does not report excessive fears or worries or paranoia. She denies nightmares, and also denies withdrawal cravings. No auditory or visual hallucination. Reason for continuing inpatient treatment: Medication management and side effect monitory with plan to discharge tomorrow AM if no side effect reported. MENTAL STATUS General Appearance and Behavior: age appropriate, good eye contact, cooperative with questioning and polite Cooperation: Cooperative Psychomotor Behavior: within normal limits Mood: depressed Affect and affective range: Congruent with stated mood Thought Process: Fluent/Logical and Goal-directed Thought Content: No Hallucinations Speech: Normal volume and Regular rate and rhythm Intellectual Functioning Average Suicidal Ideation: Denies SI Homicidal Ideation: Denies HI Impulse Control: intact Insight and Judgment: normal insight and judgment Memory: Normal Attention: Normal Orientation: alert and oriented Diagnoses: - Psychiatric problem (1) Cocaine use disorder, severe, dependence Current Visit: Yes Status: Acute (2) Cannabis use disorder, severe, dependence Current Visit: Yes Status: Acute (3) Substance-induced psychotic disorder Current Visit: Yes Status: Acute (4) Schizoaffective disorder, bipolar type Current Visit: Yes Status: Acute Treatment Plan Due to the psychiatric conditions and treatment listed in the Assessment and Plan - the patient requires continued hospitalization of medication side effect monitoring. Will continue inpatient treatment to allow for medication adjustment and monitoring. Will continue q15 min safety checks. Will encourage the use of environmental modifications and non-pharmacologic approaches for the management of behavioral and psychological symptoms. Will continue current psych medications Monitor for medication side effects. Most recent medication adjustments: Lamictal increased to 50mg bid today The patient will continue on medications for physical illnesses, and Hospitalist will closely monitor these Continue intensive physical and occupational therapies. Monitor patient's mood, sleep, appetite, and behavior closely. Encourage patient to participate in individual and group therapeutic sessions on the [place]. Will provide a safe and therapeutic environment for patient. Physician Certification Statement: This is an acknowledgement statement that ALEXANDRE PERES is a 49 year old F who requires inpatient psychiatric admission for treatment which could reasonably be expected to improve the patient's condition for auditory hallucinations and paranoia Estimated period of time patient will need to remain in the hospital: 1 days Plan for post-hospital care: Outpatient care Assessment and Plan - Patient Problems (1) Cannabis use disorder, severe, dependence Current Visit: Yes Status: Acute (2) Cocaine use disorder, severe, dependence Current Visit: Yes Status: Acute (3) Schizoaffective disorder, bipolar type Current Visit: Yes Status: Acute (4) Substance-induced psychotic disorder Current Visit: Yes Status: Acute (5) Acute psychosis Current Visit: No Status: Acute Medications and Allergies Allergies Allergy/AdvReac Type Severity Reaction Status Date / Time Penicillins Allergy Unknown Verified 06/27/15 12:35 Home Medications Medication Instructions Recorded Confirmed Last Taken Type Quetiapine Fumarate [SEROquel XR] 600 mg PO HS 11/21/13 07/23/19 1 Day Ago History ~05/28/15 PARoxetine [Paxil] 60 mg PO HS #30 tablet 06/07/17 07/23/19 Unknown Rx Ziprasidone HCl [Geodon] 80 mg PO BID 12/16/17 07/23/19 Unknown History lamoTRIgine [LaMICtal] 100 mg PO BID 12/16/17 07/23/19 Unknown History Pantoprazole [Protonix TAB] 20 mg PO QDAY #30 tablet.dr 12/17/17 07/23/19 Unknown Rx polyethylene glycoL 3350 [Miralax 17 gm PO BID #60 powd.pack 12/17/17 07/23/19 Unknown Rx 3350] traMADoL [Ultram 50 MG tab] 50 mg PO Q6H PRN #14 tablet 12/17/17 07/23/19 Unknown Rx OLANZapine [Zyprexa] 20 mg PO QHS 07/23/19 07/23/19 Unknown History busPIRone [Buspar] 10 mg PO BID 07/23/19 07/23/19 Unknown History Active Meds: Active Medications Buspirone HCl (Buspar) 10 mg PO BID [facility] Last Admin: 07/25/19 21:04 Dose: 10 mg Documented by: Lamotrigine (Lamictal) 25 mg PO BID [facility] Last Admin: 07/25/19 21:04 Dose: 25 mg Documented by: Nicotine (Habitrol) 14 mg TD QDAY [facility] Last Admin: 07/25/19 10:06 Dose: 14 mg Documented by: Pantoprazole Sodium (Protonix) 20 mg PO QDAY [facility] Last Admin: 07/25/19 10:06 Dose: 20 mg Documented by: Paroxetine HCl (Paxil) 60 mg PO HS [facility] Last Admin: 07/25/19 21:05 Dose: 60 mg Documented by: Polyethylene Glycol (Miralax 3350) 17 gm PO BID [facility] Last Admin: 07/25/19 21:03 Dose: 17 gm Documented by: Tramadol HCl (Ultram) 50 mg PO Q6H PRN PRN Reason: Pain, Moderate (4-6) Last Admin: 07/25/19 21:39 Dose: 50 mg Documented by: Ziprasidone (Geodon) 80 mg PO BID [facility] Last Admin: 07/25/19 21:04 Dose: 80 mg Documented by: Results - Results Labs/Vitals: Laboratory Last Values WBC 4.6 K/mm3 (4.5-11.0) 07/22/19 16:28 RBC 4.05 M/mm3 (3.65-5.03) 07/22/19 16:28 Hgb 11.5 gm/dl (10.1-14.3) 07/22/19 16:28 Hct 35.8 % (30.3-42.9) 07/22/19 16:28 MCV 88 fl (79-97) 07/22/19 16:28 MCH 28 pg (28-32) 07/22/19 16:28 MCHC 32 % (30-34) 07/22/19 16:28 RDW 17.8 % (13.2-15.2) H 07/22/19 16:28 Plt Count 179 K/mm3 (140-440) 07/22/19 16:28 Lymph % (Auto) 34.3 % (13.4-35.0) 07/22/19 16:28 [place] % (Auto) 9.5 % (0.0-7.3) H 07/22/19 16:28 Eos % (Auto) 4.8 % (0.0-4.3) H 07/22/19 16:28 Baso % (Auto) 1.2 % (0.0-1.8) 07/22/19 16:28 Lymph # 1.6 K/mm3 (1.2-5.4) 07/22/19 16:28 [place] # 0.4 K/mm3 (0.0-0.8) 07/22/19 16:28 Eos # 0.2 K/mm3 (0.0-0.4) 07/22/19 16:28 Baso # 0.1 K/mm3 (0.0-0.1) 07/22/19 16:28 Seg Neutrophils % 50.2 % (40.0-70.0) 07/22/19 16:28 Seg Neutrophils # 2.3 K/mm3 (1.8-7.7) 07/22/19 16:28 Sodium 142 mmol/L (137-145) 07/22/19 16:28 Potassium 3.9 mmol/L (3.6-5.0) 07/22/19 16:28 Chloride 104.0 mmol/L (98-107) 07/22/19 16:28 Carbon Dioxide 26 mmol/L (22-30) 07/22/19 16:28 Anion Gap 16 mmol/L 07/22/19 16:28 BUN 14 mg/dL (7-17) 07/22/19 16:28 Creatinine 1.1 mg/dL (0.7-1.2) 07/22/19 16:28 Estimated GFR 53 ml/min 07/22/19 16:28 BUN/Creatinine Ratio 13 % 07/22/19 16:28 Glucose 138 mg/dL (65-100) H 07/22/19 16:28 Hemoglobin A1c 5.1 % (4-6) 07/22/19 16:28 Calcium 9.3 mg/dL (8.4-10.2) 07/22/19 16:28 Total Bilirubin 0.20 mg/dL (0.1-1.2) 07/22/19 16:28 AST 18 units/L (5-40) 07/22/19 16:28 ALT 9 units/L (7-56) 07/22/19 16:28 Alkaline Phosphatase 94 units/L (35-129) 07/22/19 16:28 Total Protein 6.5 g/dL (6.3-8.2) 07/22/19 16:28 Albumin 3.8 g/dL (3.9-5) L 07/22/19 16:28 Albumin/Globulin Ratio 1.4 % 07/22/19 16:28 Triglycerides 65 mg/dL (2-149) 07/22/19 16:28 Cholesterol 182 mg/dL (50-199) 07/22/19 16:28 LDL Cholesterol Direct 133 mg/dL (50-130) H 07/22/19 16:28 HDL Cholesterol 49 mg/dL (40-59) 07/22/19 16:28 Cholesterol/HDL Ratio 3.71 % 07/22/19 16:28 TSH 0.410 mlU/mL (0.270-4.200) 07/22/19 16:28 Free T3 Index 2.9 pg/mL (2.3-4.2) 07/22/19 16:28 Last Vital Signs Temp 98.4 F 07/25/19 19:42 Pulse 104 H 07/25/19 19:42 Resp 16 07/25/19 19:42 BP 115/75 07/25/19 19:42 Pulse Ox 98 07/25/19 19:42
[2019-07-26] MEDS: ZIPRASIDONE 40 MG CAP PO SCH ×2 (09:47→21:08)
[2019-07-26] MEDS: NICOTINE 14 MG/24 HR PATCH TD SCH (09:47)
[2019-07-26] MEDS: PANTOPRAZOLE 20 MG TAB PO SCH (09:47)
[2019-07-26] MEDS: POLYETHYLENE GLYCOL 3350 17 GM POWDER PO SCH ×2 (09:48→21:09)
[2019-07-26] MEDS: busPIRone 10 MG TAB PO SCH ×2 (09:48→21:08)
[2019-07-26] MEDS: lamoTRIgine 25 MG TAB PO SCH ×2 (09:52→21:07)
[2019-07-26] MEDS: PARoxetine 20 MG TAB PO SCH (21:05)
[2019-07-26] MEDS: traMADol 50 MG TAB PO PRN (21:10)
[2019-07-27 07:59] VITALS: BP 112/73
[2019-07-27] MEDS: ZIPRASIDONE 40 MG CAP PO SCH (09:07)
[2019-07-27] MEDS: lamoTRIgine 25 MG TAB PO SCH (09:07)
[2019-07-27] MEDS: NICOTINE 14 MG/24 HR PATCH TD SCH (09:07)
[2019-07-27] MEDS: POLYETHYLENE GLYCOL 3350 17 GM POWDER PO SCH (09:07)
[2019-07-27] MEDS: PANTOPRAZOLE 20 MG TAB PO SCH (09:07)
[2019-07-27] MEDS: busPIRone 10 MG TAB PO SCH (09:07)
--- NOTE | 2019-07-27 09:09 | Discharge Summary ---
Providers - Providers Date of Admission: 07/22/19 15:06 Date of discharge: 07/27/19 Attending physician: MAT SALDANA MD 07/22/19 11:18 Consult to Physician [CONS] Stat Comment: Consulting Provider: BETSY GRANT Physician Instructions: Reason For Exam: Medical management Primary care physician: COPPER TAPPER Hospitalization Reason for admission: Auditory hallucinations and paranoia. Her UDS was + for Cocaine and THC Condition: Stable Hospital course: The patient was provided inpatient psychiatric treatment with safe and supportive environment, group/individual therapy, psychiatric medication, medication adjustment, adverse effect monitor, medical evaluation, medical treatment, social service assessment, social support meeting, placement assessment and psycho-education. The patients mood, cognition, behavior, motivation, compliance to treatment and appreciation on family/social support are improved and stabilized. At the time of discharge, the patient had no suicidal ideas, no homicidal ideas, no aggressive thoughts, no endangering behavior and no debilitating adverse effects. The patient agreed on the treatment plan, understood the risk, benefit, alternative treatment, potential consequence of no treatment, and gave informed consent. Disposition: DC-01 TO HOME OR SELFCARE Allergies/Adverse Reactions: Allergies Penicillins Allergy (Verified 06/27/15 12:35) Unknown Vital Signs: Last Vital Signs Temp 98.0 F 07/27/19 08:37 Pulse 85 07/27/19 07:29 Resp 18 07/27/19 07:29 BP 112/73 07/27/19 07:29 Pulse Ox 96 07/27/19 07:29 Last Lab: Laboratory Last Values WBC 4.6 K/mm3 (4.5-11.0) 07/22/19 16:28 RBC 4.05 M/mm3 (3.65-5.03) 07/22/19 16:28 Hgb 11.5 gm/dl (10.1-14.3) 07/22/19 16:28 Hct 35.8 % (30.3-42.9) 07/22/19 16:28 MCV 88 fl (79-97) 07/22/19 16:28 MCH 28 pg (28-32) 07/22/19 16:28 MCHC 32 % (30-34) 07/22/19 16:28 RDW 17.8 % (13.2-15.2) H 07/22/19 16:28 Plt Count 179 K/mm3 (140-440) 07/22/19 16:28 Lymph % (Auto) 34.3 % (13.4-35.0) 07/22/19 16:28 [place] % (Auto) 9.5 % (0.0-7.3) H 07/22/19 16:28 Eos % (Auto) 4.8 % (0.0-4.3) H 07/22/19 16:28 Baso % (Auto) 1.2 % (0.0-1.8) 07/22/19 16:28 Lymph # 1.6 K/mm3 (1.2-5.4) 07/22/19 16:28 [place] # 0.4 K/mm3 (0.0-0.8) 07/22/19 16:28 Eos # 0.2 K/mm3 (0.0-0.4) 07/22/19 16:28 Baso # 0.1 K/mm3 (0.0-0.1) 07/22/19 16:28 Seg Neutrophils % 50.2 % (40.0-70.0) 07/22/19 16:28 Seg Neutrophils # 2.3 K/mm3 (1.8-7.7) 07/22/19 16:28 Sodium 142 mmol/L (137-145) 07/22/19 16:28 Potassium 3.9 mmol/L (3.6-5.0) 07/22/19 16:28 Chloride 104.0 mmol/L (98-107) 07/22/19 16:28 Carbon Dioxide 26 mmol/L (22-30) 07/22/19 16:28 Anion Gap 16 mmol/L 07/22/19 16:28 BUN 14 mg/dL (7-17) 07/22/19 16:28 Creatinine 1.1 mg/dL (0.7-1.2) 07/22/19 16:28 Estimated GFR 53 ml/min 07/22/19 16:28 BUN/Creatinine Ratio 13 % 07/22/19 16:28 Glucose 138 mg/dL (65-100) H 07/22/19 16:28 Hemoglobin A1c 5.1 % (4-6) 07/22/19 16:28 Calcium 9.3 mg/dL (8.4-10.2) 07/22/19 16:28 Total Bilirubin 0.20 mg/dL (0.1-1.2) 07/22/19 16:28 AST 18 units/L (5-40) 07/22/19 16:28 ALT 9 units/L (7-56) 07/22/19 16:28 Alkaline Phosphatase 94 units/L (35-129) 07/22/19 16:28 Total Protein 6.5 g/dL (6.3-8.2) 07/22/19 16:28 Albumin 3.8 g/dL (3.9-5) L 07/22/19 16:28 Albumin/Globulin Ratio 1.4 % 07/22/19 16:28 Triglycerides 65 mg/dL (2-149) 07/22/19 16:28 Cholesterol 182 mg/dL (50-199) 07/22/19 16:28 LDL Cholesterol Direct 133 mg/dL (50-130) H 07/22/19 16:28 HDL Cholesterol 49 mg/dL (40-59) 07/22/19 16:28 Cholesterol/HDL Ratio 3.71 % 07/22/19 16:28 TSH 0.410 mlU/mL (0.270-4.200) 07/22/19 16:28 Free T3 Index 2.9 pg/mL (2.3-4.2) 07/22/19 16:28 - Discharge Diagnoses (1) Cannabis use disorder, severe, dependence Status: Acute (2) Cocaine use disorder, severe, dependence Status: Acute (3) Schizoaffective disorder, bipolar type Status: Acute (4) Substance-induced psychotic disorder Status: Acute (5) Acute psychosis Status: Acute Core Measure Documentation - Palliative Care Palliative Care/ Comfort Measures: Not Applicable - Core Measures Any of the following diagnoses?: none Exam - Constitutional Vitals: Temp Pulse Resp BP Pulse Ox 98.0 F 85 18 112/73 96 07/27/19 08:37 07/27/19 07:29 07/27/19 07:29 07/27/19 07:29 07/27/19 07:29 General appearance: Present: no acute distress - EENT Eyes: Present: PERRL, EOM intact ENT: hearing intact, clear oral mucosa - Neck Neck: Present: supple, normal ROM - Respiratory Respiratory effort: normal Plan Activity: advance as tolerated Weight Bearing Status: Weight Bear as Tolerated Care Plan Goals: Maintain good and stable mental health Plan of Treatment: The patient should be compliant with medications, not to use drugs and not to drink alcohol. The patient understands that if suicidal ideas, homicidal ideas, or any endangering thoughts arise, the patient should immediately seek for emergent assistance including but not limited to crisis hot line and emergency room. Follow up with outpatient Psychiatrist and PCP within 7 - 14 days of discharge. Assessment: Schizoaffective disorder Polysubstance dependence Substance induced psychosis Follow up with: PRIMARY CARE, [Primary Care Provider] - 7 Days Prescriptions: busPIRone [Buspar] 10 mg PO BID #30 Ziprasidone HCl [Geodon] 80 mg PO BID #30 cap Nicotine [Habitrol] 14 mg TD QDAY #30 patch lamoTRIgine [LaMICtal] 50 mg PO BID #30 tablet polyethylene glycoL 3350 [Miralax 3350] 17 gm PO BID #60 powd.pack PARoxetine [Paxil] 60 mg PO HS #14 tablet Pantoprazole [Protonix TAB] 20 mg PO QDAY #30 tablet.
== END 2019-07-27 11:50 | disposition home or self-care (01) | DRG 885 ==
LOC: UNDOADMIN 11:04 → 3A 11:04 → 5A 15:06
PROVIDERS: ADMIT Psychiatry & Neurology Psychiatry; ATTEND Psychiatry & Neurology Psychiatry
DX: F25.0 Schizoaffective disorder, bipolar type (principal); F14.20 Cocaine dependence, uncomplicated; F23 Brief psychotic disorder; K50.90 Crohn's disease, unspecified, without complications; F12.20 Cannabis dependence, uncomplicated; F19.99 Other psychoactive substance use, unspecified with unspecified psychoactive substance-induced disorder; G43.909 Migraine, unspecified, not intractable, without status migrainosus; G89.29 Other chronic pain; M54.9 Dorsalgia, unspecified; F17.200 Nicotine dependence, unspecified, uncomplicated; Z88.0 Allergy status to penicillin; Z82.49 Family history of ischemic heart disease and other diseases of the circulatory system; Z79.899 Other long term (current) drug therapy; Z71.6 Tobacco abuse counseling
CPT/HCPCS: 36415; 80048; 80053; 80061; 80307; 80320; 81001; 83036; 84443; 84481; 84703; 85025; G0378; G0480